=== PATIENT | female | born 1970 | race African-American/Black ===

== ENCOUNTER 2021-07-13 18:30 | Emergency (ER) | payer SELFPAY ==
[~2021-07-13] VITALS: Ht 170.2 cm; Wt 129.0 kg
[~2021-07-13 18:30] MED LIST: FERR1TAB84; FERR325T32; GLIP10TA3; METF-416; SERT50TA
[2021-07-13] MEDS ORDERED: HYDROCODONE/ACETAMINOPHEN 5/325MG TABLET PO STA (20:59)
[2021-07-13] MEDS ORDERED: VISCOUS LIDOCAINE 2% 15 ML UDC PO STA (20:59)
[2021-07-13 21:22] LABS: HEMATOCRIT. 43.8 % (36.0-48.0); HEMOGLOBIN. 13.9 g/dL (12.0-16.0); LYMPHOCYTES % 20.7 % (20.0-50.0); MEAN CORPUSCULAR HEMOGLOBIN 27.3 pg (28.0-32.0); MEAN CORPUSCULAR VOLUME 85.8 fL (81.0-99.0); MEAN PLATELET VOLUME 9.1 fl (7.4-10.4); MONOCYTES % 4.3 % (2.0-8.0); PLATELET 258 x1000/uL (130-400)
[2021-07-13 21:27] LABS: CHLORIDE 102 mEq/L (98-107)
[2021-07-13 21:31] LABS: CLARITY URINE CLEAR (CLEAR); COLOR URINE YELLOW (YELLOW); KETONES URINE NEGATIVE (NEGATIVE); LEUKOCYTE ESTERASE URINE NEGATIVE (NEGATIVE); NITRITE URINE NEGATIVE (NEGATIVE); OCCULT BLOOD URINE TRACE (NEGATIVE); PROTEIN URINE NEGATIVE (NEGATIVE); SPECIFIC GRAVITY URINE 1.036 (1.005-1.030); UROBILINOGEN URINE 0.2 E.U./dL (0.2-1.0)
[2021-07-13] MEDS ORDERED: IBUP-2028 MT (22:04)
[2021-07-13 22:14] VITALS: BP 138/88
== END 2021-07-13 22:16 | disposition home or self-care (01) ==
LOC: ER 18:30
DX: R10.30 Lower abdominal pain, unspecified (principal); I10 Essential (primary) hypertension; E78.00 Pure hypercholesterolemia, unspecified; E11.9 Type 2 diabetes mellitus without complications; Z98.890 Other specified postprocedural states
CPT/HCPCS: 36415; 80053; 81003; 85025; 93005; 99284